=== PATIENT | female | born 1985 | race Caucasian/White ===

== ENCOUNTER 2022-01-24 17:52 | Emergency (ER) | payer OTHER, SELFPAY ==
--- NOTE | ~2022-01-24 | US_ITS ---
EXAMINATION: US RETROPERITONEAL LIMITED (RENAL ONLY) CLINICAL INFORMATION: Lower pelvic pain. Hematuria. Question stone.. COMPARISON: None TECHNIQUE: Sonographic evaluation of the kidneys. FINDINGS: RIGHT KIDNEY: 10.1 x 5.7 x 4.3 cm (SAG x AP x TRV). The kidney is normal in size, contour, and echogenicity. Renal cortical thickness is normal. No calculi or focal parenchymal lesions. No hydronephrosis. LEFT KIDNEY: 11.8 x 4.9 x 5.5 cm (SAG x AP x TRV). The kidney is normal in size, contour, and echogenicity. Renal cortical thickness is normal. No calculi or focal parenchymal lesions. No hydronephrosis. US/US renal BI IMPRESSION: Normal appearance of both kidneys..
--- NOTE | ~2022-01-24 | US_ITS ---
EXAMINATION: US OBSTETRICAL ULTRASOUND CLINICAL INFORMATION: Lower abdominal cramping COMPARISON: None. LMP: 12/07/2021. Gestational age by maternal dates is 7 weeks 0 days. Estimated date of delivery by maternal dates is 09/13/2022. TECHNIQUE: Transabdominal sonographic imaging of the pelvis. Doppler evaluation with spectral analysis performed. FINDINGS: There is a single intrauterine gestational sac with visible yolk sac, embryo/fetus, and cardiac activity. There is no significant subchorionic hemorrhage or hematoma. HR: 117 beats per minute. CRL (crown rump length): 1.52 cm (8 weeks 0 days +/- 4 days). VISHNU (estimated date of delivery): 09/06/2022 +/- 4 days. MATERNAL ADNEXA: The right maternal ovary measures 3.4 x 1.6 x 2.3 cm. Normal arterial and venous spectral waveforms. The left maternal ovary measures 3.8 x 2.3 x 3.1 cm. Normal arterial and venous spectral waveforms. Probable corpus luteal cyst. There is no significant maternal adnexal mass. No maternal pelvic ascites. US/US OB <= 14 weeks fetus IMPRESSION: 1. Single intrauterine gestation with ultrasound gestational age of 8 weeks 0 days +/- 4 days. 2. Estimated date of delivery is 09/06/2022 +/- 4 days. 3. No maternal adnexal mass or pelvic ascites.
[2022-01-24 19:04] VITALS: BP 112/61; PULSE 77; RESP 18; TEMP 37.2; O2SAT 98; BMI 31.8
[2022-01-24 19:16] LABS: MANUAL DIFF FLAG NO
[2022-01-24 19:18] LABS: Basophils Absolute Auto 0.1 X10*3/uL (0.0-0.2); Basophils Percent Auto 0.4 % (0-2); Eosinophils Absolute Auto 0.1 X10*3/uL (0.0-0.4); Eosinophils Percent Auto 0.4 % (0-4); Hematocrit 41.7 % (37.0-47.0); Hemoglobin 14.3 g/dl (12.0-16.0); Imm Gran Abs Auto 0.04 X10*3/uL (0.00-0.03); Imm Gran Pct Auto 0.3 % (0.0-0.4); Lymphocytes Absolute Auto 1.4 X10*3/uL (1.2-4.9); Lymphocytes Percent Auto 10.6 % (20-40); Mean Corpuscular HGB Conc 34.3 g/dl (31.0-35.0); Mean Corpuscular Hemoglobin 30.2 pg (27.0-33.0); Mean Corpuscular Volume 88.2 fL (80.0-98.0); Mean Platelet Volume 9.3 fL (9.4-12.3); Monocytes Absolute Auto 0.6 X10*3/uL (0.1-1.2); Monocytes Percent Auto 4.4 % (2-11); Neutrophils Absolute Auto 11.3 x10*3/uL (2.0-8.3); Neutrophils Percent Auto 83.9 % (45-73); Platelet Count 251 X10*3/uL (160-400); Red Blood Count 4.73 X10*6/uL (4.20-5.50); Red Cell Distribution Width 12.5 % (11.0-16.0); White Blood Count 13.4 X10*3/uL (4.8-10.8)
[2022-01-24 19:38] LABS: Alanine Aminotransferase 10 U/L (0-31); Albumin Level 4.8 g/dL (3.5-5.0); Alkaline Phosphatase 94 U/L (39-117); Aspartate Amino Transferase 13 U/L (5-31); Bilirubin Direct 0.5 mg/dL (0.0-0.5); Bilirubin Total 1.2 mg/dL (0.0-1.0); Lipase 12 U/L (8-78); Total Protein 7.5 g/dL (6.5-8.0)
[2022-01-24 19:39] LABS: Alanine Aminotransferase 10 U/L (0-31); Albumin Level 4.8 g/dL (3.5-5.0); Alkaline Phosphatase 88 U/L (39-117); Anion Gap 17 (12-20); Aspartate Amino Transferase 14 U/L (5-31); Bilirubin Total 1.2 mg/dL (0.0-1.0); Blood Urea Nitrogen 12 mg/dL (9-16); Calcium 9.7 mg/dL (8.4-10.2); Carbon Dioxide 22 mmol/L (22-29); Chloride 105 mmol/L (96-108); Creatinine Clr Calc Pharmacy 105.3; Estimated Glomerular Filt Rate > 60; Glucose Random 93 mg/dL (60-115); Potassium 4.2 mmol/L (3.3-5.1); Sodium 140 mmol/L (135-145); Total Protein 7.5 g/dL (6.5-8.0)
[2022-01-24 21:12] VITALS: BP 117/64; PULSE 79; RESP 16; TEMP 37.3; O2SAT 100
[2022-01-24 21:20] LABS: Appearance Urine CLEAR; Color Urine YELLOW; Glucose Urine UA Negative (NEG); Leukocyte Esterase Urine Negative (Negative); Nitrite Urine Negative (NEG); Specific Gravity - Urine >= 1.030 (1.005-1.025); Urine Blood Moderate (2+) (NEG); Urine Ketones >=80 MG/DL (NEG); Urine Protein 30 (1+) MG/DL (NEG-TRACE)
[2022-01-24 21:23] LABS: UPreg QC Valid YES; Urine Pregnancy POSITIVE (NEGATIVE)
[2022-01-24 21:26] LABS: Mucus Urine 2+ /LPF; Squamous Epithelial Cell Urine 1+ /LPF
[2022-01-24 21:27] LABS: WBC Urine 0-2 /HPF (0-4)
[2022-01-24 21:28] LABS: Amorphous Sediment Urine TRACE /LPF
--- NOTE | 2022-01-25 00:04 | ED_ITS ---
HPI - General Adult General Chief complaint: Nausea/Vomiting/Diarrhea Stated complaint: Vomiting 6 Wks Time Seen by Provider: 01/24/22 21:39 Source: patient Mode of arrival: ambulatory Limitations: no limitations History of Present Illness HPI narrative: 36 yold female who is 6 weeks presents to the ED for nausea, vomititting and inability to keep anything down since yesterday. Patient states slight bilateral lower abdominal cramping. Patient states no upper abdominal pain or vaginal bleeding. Patient denies any vaginal bleeding. Related Data Previous Rx's Medication Instructions Recorded metoclopramide HCl 10 mg tablet 10 mg PO Q4-6H PRN nausea and 01/25/22 (Reglan) vomiting 5 days #20 tabs pyridoxine (vitamin B6) 25 mg 25 mg PO TID PRN nausea and 01/25/22 tablet vomiting 5 days #15 tabs Allergies Allergy/AdvReac Type Severity Reaction Status Date / Time No Known Allergies Allergy Verified 01/24/22 19:02 Review of Systems Review of Systems: nausea, vomitting Yes all other systems are reviewed and are negative PMFSH Social History Social History Advance Directives: No Physical Exam ED Vital Signs: Vital Signs - 24 hr 01/24/22 19:04 01/24/22 21:12 01/25/22 00:20 Temperature 98.9 F 99.1 F Pulse Rate 77 79 81 Respiratory Rate 18 16 15 Blood Pressure 112/61 117/64 Pulse Oximetry 98 100 100 Oxygen Delivery Method Room Air Room Air Room Air BMI result Body Mass Index 31.8 Const General: cooperative, healthy appearing, comfortable, no acute distress, well developed, alert, awake and Physically active Orientation/consciousness: oriented to time and patient oriented x3 HENMT Head: Yes normal to inspection, Yes No palpable skull fracture present, Yes normocephalic, Yes atraumatic and No abrasion Eyes General: appearance normal, both eyes and all related structures Neck Neck: Yes normal visual inspection, Yes full ROM, Yes no lymphadenopathy, Yes no meningeal signs, Yes trachea midline, Yes supple, No anterior neck swelling and No tender Chest Chest palpation & inspection: normal inspection of the chest and normal palpation of entire chest wall Resp Effort & Inspection: normal respiratory effort and able to speak in complete sentences Auscultation: clear to auscultation bilaterally Cardio Jugular venous distension: no JVD Heart sounds: S1 normal heart sound present and S2 normal heart sound present GI Inspection: Yes normal to inspection and No abdominal wall ecchymosis Palpation (GI): Soft to palpation, not firm, nontender, no guarding and not rigid General: No CVA tenderness and Yes no CVA tenderness Back/Spine/Pelvis Back: no CVA tenderness, No CVA tenderness and No back tenderness Skin General skin exam: no rashes or lesions noted and elasticity normal Neuro General: oriented to time, patient oriented x3, gait normal, no meningeal signs and CN's II-XI intact bilaterally Cranial nerves: Yes CN's II-XII intact bilaterally Extrem General: Yes normal to inspection, Yes full ROM, Yes capillary refill normal, Yes normal exam except as noted, Yes no pedal edema, Yes no calf tenderness and Yes normal gait Psych Appearance: grossly normal, well kempt and not disheveled Course Course Course Narrative: History physical exam indicates hyperemesis but due to patient stating lower abdominal cramping without any tenderness was sent for ultrasound to make sure there is no ectopic . Urine has dysuria was sent for ultrasound of kidney summation is no kidney stones. Reevaluation(s) Reevaluation #1: Pelvic exam negative for any vaginal bleeding. Cervical os is closed. Negative CMT. Patient will be discharged with B6 and Reglan ( recommended by Dr. Uribe). Labs are normal at baseline. Renal ultrasound negative for kidney stones. ultrasound shows IUP with heart rate. Patient passed P.O. challenge Time: 01:39 Medical Decision Making [facility] Narrative Medical decision making narrative: Hyperemesis gravidarum Lab Data Result diagrams: 01/24/22 19:10 01/24/22 19:10 Labs: Lab Results 01/24/22 01/24/22 01/24/22 Range/Units 19:09 19:10 19:10 WBC 13.4 H (4.8-10.8) X10*3/uL RBC 4.73 (4.20-5.50) X10*6/uL Hgb 14.3 (12.0-16.0) g/dl Hct 41.7 (37.0-47.0) % MCV 88.2 (80.0-98.0) fL MCH 30.2 (27.0-33.0) pg MCHC 34.3 (31.0-35.0) g/dl RDW 12.5 (11.0-16.0) % Plt Count 251 (160-400) X10*3/uL MPV 9.3 L (9.4-12.3) fL Immature Gran % (Auto) 0.3 (0.0-0.4) % Neut % (Auto) 83.9 H (45-73) % Lymph % (Auto) 10.6 L (20-40) % [place] % (Auto) 4.4 (2-11) % Eos % (Auto) 0.4 (0-4) % Baso % (Auto) 0.4 (0-2) % Lymph # (Auto) 1.4 (1.2-4.9) X10*3/uL [place] # (Auto) 0.6 (0.1-1.2) X10*3/uL Eos # (Auto) 0.1 (0.0-0.4) X10*3/uL Baso # (Auto) 0.1 (0.0-0.2) X10*3/uL Abs Immat Gran (auto) 0.04 H (0.00-0.03) X10*3/uL Absolute Neuts (auto) 11.3 H (2.0-8.3) x10*3/uL Absolute Nucleated RBC 0.000 (0.0-0.012) X10*3/uL Nucleated RBC % (auto) 0.0 (0.0-0.2) /100WBC Sodium 140 (135-145) mmol/L Potassium 4.2 (3.3-5.1) mmol/L Chloride 105 (96-108) mmol/L Carbon Dioxide 22 (22-29) mmol/L Anion Gap 17 (12-20) BUN 12 (9-16) mg/dL Creatinine 0.74 (0.5-1.4) mg/dL Estim Creat Clear Calc 105.3 Estimated GFR > 60 Random Glucose 93 (60-115) mg/dL Calcium 9.7 (8.4-10.2) mg/dL Total Bilirubin 1.2 H 1.2 H (0.0-1.0) mg/dL Direct Bilirubin 0.5 (0.0-0.5) mg/dL AST 13 14 (5-31) U/L ALT 10 10 (0-31) U/L Alkaline Phosphatase 94 88 (39-117) U/L Total Protein 7.5 7.5 (6.5-8.0) g/dL Albumin 4.8 4.8 (3.5-5.0) g/dL Lipase 12 (8-78) U/L Beta HCG, Quant 79434 mIU/mL Urine Color Urine Appearance Urine pH (5.0-8.0) Ur Specific [place] (1.005-1.025) Urine Protein (NEG-TRACE) MG/DL Urine Glucose (UA) (NEG) MG/DL Urine Ketones (NEG) MG/DL Urine Blood (NEG) Urine Nitrite (NEG) Ur Leukocyte Esterase (Negative) Urine RBC (0) /HPF Urine WBC (0-4) /HPF Ur Squamous Epith Cells /LPF Amorphous Sediment /LPF Urine Bacteria /LPF Urine Mucus /LPF Urine Test (NEGATIVE) 01/24/22 01/24/22 Range/Units 21:14 21:14 WBC (4.8-10.8) X10*3/uL RBC (4.20-5.50) X10*6/uL Hgb (12.0-16.0) g/dl Hct (37.0-47.0) % MCV (80.0-98.0) fL MCH (27.0-33.0) pg MCHC (31.0-35.0) g/dl RDW (11.0-16.0) % Plt Count (160-400) X10*3/uL MPV (9.4-12.3) fL Immature Gran % (Auto) (0.0-0.4) % Neut % (Auto) (45-73) % Lymph % (Auto) (20-40) % [place] % (Auto) (2-11) % Eos % (Auto) (0-4) % Baso % (Auto) (0-2) % Lymph # (Auto) (1.2-4.9) X10*3/uL [place] # (Auto) (0.1-1.2) X10*3/uL Eos # (Auto) (0.0-0.4) X10*3/uL Baso # (Auto) (0.0-0.2) X10*3/uL Abs Immat Gran (auto) (0.00-0.03) X10*3/uL Absolute Neuts (auto) (2.0-8.3) x10*3/uL Absolute Nucleated RBC (0.0-0.012) X10*3/uL Nucleated RBC % (auto) (0.0-0.2) /100WBC Sodium (135-145) mmol/L Potassium (3.3-5.1) mmol/L Chloride (96-108) mmol/L Carbon Dioxide (22-29) mmol/L Anion Gap (12-20) BUN (9-16) mg/dL Creatinine (0.5-1.4) mg/dL Estim Creat Clear Calc Estimated GFR Random Glucose (60-115) mg/dL Calcium (8.4-10.2) mg/dL Total Bilirubin (0.0-1.0) mg/dL Direct Bilirubin (0.0-0.5) mg/dL AST (5-31) U/L ALT (0-31) U/L Alkaline Phosphatase (39-117) U/L Total Protein (6.5-8.0) g/dL Albumin (3.5-5.0) g/dL Lipase (8-78) U/L Beta HCG, Quant mIU/mL Urine Color YELLOW Urine Appearance CLEAR Urine pH 6.0 (5.0-8.0) Ur Specific [place] >= 1.030 H (1.005-1.025) Urine Protein 30 (1+) H (NEG-TRACE) MG/DL Urine Glucose (UA) Negative (NEG) MG/DL Urine Ketones >=80 (NEG) MG/DL Urine Blood Moderate (2+) H (NEG) Urine Nitrite Negative (NEG) Ur Leukocyte Esterase Negative (Negative) Urine RBC 5-9 H (0) /HPF Urine WBC 0-2 (0-4) /HPF Ur Squamous Epith Cells 1+ /LPF Amorphous Sediment TRACE /LPF Urine Bacteria NONE /LPF Urine Mucus 2+ /LPF Urine Test POSITIVE H (NEGATIVE) Discharge Plan Discharge Clinical Impression: Hyperemesis gravidarum Patient Disposition: Home, Self-Care Instructions: Hyperemesis Gravidarum (ED) Additional Instructions: Your labs came back at baseline. Urinary showed some dehydration that is why you are given fluid. Recommend oral hydration. You will be given copy of your labs and ultrasound results to follow-up with your OBGYN at [facility]. Return to the ED immediately for worsening abdominal pain, nausea, vomiting, vaginal bleeding, vaginal discharge, flank pain, fever, chills, or inability to have solids/liquids, or any other concerning symptoms. Prescriptions: New metoclopramide HCl [Reglan] 10 mg tablet 10 mg PO Q4-6H PRN (Reason: nausea and vomiting) 5 Days Qty: 20 0RF pyridoxine (vitamin B6) 25 mg tablet 25 mg PO TID PRN (Reason: nausea and vomiting) 5 Days Qty: 15 0RF Stand Alone Forms: Work/School Release Print Language: Azeri
[2022-01-25] MEDS: Metoclopramide HCl 10 MG/2 ML VIAL IVPUSH (00:19)
[2022-01-25 00:20] VITALS: PULSE 81; RESP 15; O2SAT 100
[2022-01-25] MEDS: 0.9 % Sodium Chloride 1,000 ML 999 ML IV (00:20)
--- NOTE | 2022-01-25 00:53 | PC.NURSE ---
pt ambulatory over to ultrasound
--- NOTE | 2022-01-25 00:58 | PC.NURSE ---
pt off the floor to US.
== END 2022-01-25 02:01 | disposition home or self-care (01) ==
PROVIDERS: Emergency Provider Internal Medicine
DX: O21.0 Mild hyperemesis gravidarum (principal); Z3A.01 Less than 8 weeks gestation of pregnancy; Z79.899 Other long term (current) drug therapy
CPT/HCPCS: 36415; 76775; 76801; 80053; 80076; 81001; 81025; 82248; 83690; 84702; 85025; 96374; 99284; J2765

== ENCOUNTER → 2022-02-02 09:20 | Outpatient (BNVA) | payer OTHER, SELFPAY | PROVIDERS: Visit Provider Advanced Practice Midwife | DX: O21.9 Vomiting of pregnancy, unspecified (principal); Z32.01 Encounter for pregnancy test, result positive; Z3A.08 8 weeks gestation of pregnancy | CPT/HCPCS: 99202 ==

== ENCOUNTER 2023-05-27 17:51 | Emergency (ER) | payer OTHER, SELFPAY ==
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
[2023-05-27 17:58] VITALS: BP 122/80; PULSE 92; O2SAT 98
[2023-05-27 18:00] VITALS: BP 139/65; PULSE 73; RESP 16
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
[2023-05-27 18:06] VITALS: BP 139/65; PULSE 73; RESP 16; O2SAT 97; BMI 31.9
[2023-05-27] MEDS: Ibuprofen 600 MG TABLET PO (18:26)
== END 2023-05-27 19:12 | disposition home or self-care (01) ==
PROVIDERS: Emergency Provider Emergency Medicine
DX: Z04.1 Encounter for examination and observation following transport accident (principal); M54.50 Low back pain, unspecified; M54.6 Pain in thoracic spine
CPT/HCPCS: 72070; 72100; 99283; 99284

== ENCOUNTER 2024-12-19 21:24 | Emergency (ER) | payer MEDICAID, SELFPAY ==
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
[2024-12-19 21:39] VITALS: BP 121/63; PULSE 101; RESP 20; TEMP 36.6; O2SAT 100; BMI 30.9
[2024-12-19 22:00] LABS: MANUAL DIFF FLAG NO
[2024-12-19 22:02] LABS: Hematocrit 39.4 % (37.0-47.0); Hemoglobin 13.8 g/dl (12.0-16.0); Imm Gran Abs Auto 0.05 X10*3/uL (0.00-0.03); Imm Gran Pct Auto 0.4 % (0.0-0.4); Lymphocytes Absolute Auto 1.6 X10*3/uL (1.2-4.9); Mean Corpuscular HGB Conc 35.0 g/dl (31.0-35.0); Mean Corpuscular Hemoglobin 30.7 pg (27.0-33.0); Mean Corpuscular Volume 87.6 fL (80.0-98.0); NRBC Abs Auto 0.000 X10*3/uL (0.0-0.012); NRBC Pct Auto 0.0 /100WBC (0.0-0.2); Platelet Count 236 X10*3/uL (160-400); Red Blood Count 4.50 X10*6/uL (4.20-5.50); White Blood Count 11.7 X10*3/uL (4.8-10.8)
[2024-12-19 22:17] LABS: Alanine Aminotransferase 19 U/L (0-31); Albumin Level 4.7 g/dL (3.5-5.0); Alkaline Phosphatase 90 U/L (39-117); Anion Gap 11 (12-20); Aspartate Amino Transferase 21 U/L (5-31); Blood Urea Nitrogen 11 mg/dL (9-16); Calcium 9.2 mg/dL (8.4-10.2); Carbon Dioxide 27 mmol/L (22-29); Chloride 106 mmol/L (96-108); Creatinine Clr Calc Pharmacy 85.9; Estimated Glomerular Filt Rate > 60; Potassium 4.0 mmol/L (3.3-5.1); Sodium 140 mmol/L (135-145); Total Protein 7.2 g/dL (6.5-8.0)
[2024-12-20 00:02] VITALS: BP 110/71; PULSE 80; RESP 14; TEMP 36.9; O2SAT 96
--- NOTE | 2024-12-20 00:26 | ED.GENADULT ---
HPI - General Adult General Chief complaint: General Medical Stated complaint: laceration back of head/syncope Time Seen by Provider: 12/20/24 00:22 Source: patient Limitations: no limitations History of Present Illness ED Provider: Kathe Chand PA-C HPI narrative: 39-year-old female presents with scalp laceration. Patient states she was cleaning in her kitchen, she felt as if she was going to pass out, she fell backwards hitting her head on a counter. No blood thinners, there was no loss consciousness,. Tetanus up-to-date. The patient denies headache, dizziness, nausea vomiting. She is having pain at the site. Related Data Previous Rx's ?Medication ?Instructions ?Recorded metoclopramide HCl 10 mg tablet 10 mg PO Q4-6H PRN nausea and 02/02/22 (Reglan) vomiting #60 tabs vitamin with calcium 1 tab PO DAILY #90 tabs 02/02/22 no.72-iron 27 mg-folic acid 1 mg tablet ( Vitamins Plus Low Iron) pyridoxine (vitamin B6) 25 mg 25 mg PO TID PRN nausea and 02/02/22 tablet vomiting #90 tabs cyclobenzaprine 5 mg tablet 5 mg PO TID PRN muscle spasm #20 05/27/23 tabs Allergies Allergy/AdvReac Type Severity Reaction Status Date / Time No Known Allergies Allergy Verified 12/19/24 21:43 Review of Systems Review of Systems: Yes all other systems are reviewed and are negative Constitutional: Constitutional: Denies fatigue, Denies fever(s) and Denies headache(s) ENT: Denies dizziness, Denies headache(s) and Denies neck pain Cardiovascular: Cardiovascular: Denies chest pain and Denies dyspnea Respiratory: Respiratory: Denies dyspnea Musculoskeletal: Musculoskeletal: Denies back pain and Denies neck pain Neurologic: Denies dizziness and Denies headache(s) Endocrine: Endocrine: Denies fatigue [facility] Past Medical History Attestation statement: The following information was validated with the patient. Social History Social History (Updated 02/02/22 @ 09:28 by Natalia Smith MA) Alcohol intake: never Patient Tobacco Use Status: Never used Tobacco Smoked in Last 30 Days: No Use of substances other than those prescribed or required for medical reasons: No Do you have a plan to hurt others: No Plan Patient : No Physical Exam ED Vital Signs: Vital Signs - 24 hr 12/19/24 21:39 12/20/24 00:02 Temperature 97.9 F 98.5 F Pulse Rate 101 H 80 Respiratory Rate 20 14 Blood Pressure 121/63 110/71 Pulse Oximetry 100 96 Oxygen Delivery Method Room Air Room Air BMI result Body Mass Index 30.9 Const Other: Alert circular laceration deep to subcu tissue not bleeding, measures approximately 4 cm in total length Orientation/consciousness: patient oriented x3 Resp Effort & Inspection: normal respiratory effort Cardio Other: Normal peripheral perfusion Skin Other: Warm dry no rash Neuro General: patient oriented x3, gait normal, no focal motor deficits and CN's II-XI intact bilaterally Psych Other: Cooperative Procedures Laceration Laceration 1: Site: scalp Side (If applicable): left Size (cm): 4 Description: irregular Depth: simple, single layer Local Anesthetic: lidocaine 1% and with epi Amount of anesthesia used (mL): 10 Pre-repair: irrigated extensively Technique: other (Eight jose) Medical Decision Making Medical Decision Making MDM Narrative: 39-year-old female presents with scalp laceration. Patient states she was cleaning in her kitchen, she felt as if she was going to pass out, she fell backwards hitting her head on a counter. No blood thinners, there was no loss consciousness,. Tetanus up-to-date. The patient denies headache, dizziness, nausea vomiting. She is having pain at the site. No chronic issues Her history: Per patient I have considered the following differential diagnoses: Laceration, contusion, abrasion Plan: Patient has sustained a laceration, simple repair with jose is all that is required. Screening labs were obtained from triage. I have independently reviewed the following tests: Labs: Slight leukocytosis, not anemic, no electrolyte abnormality noted Lab Data 12/19/24 21:57 12/19/24 21:57 Labs: Lab Results 12/19/24 Range/Units 21:57 WBC 11.7 H (4.8-10.8) X10*3/uL RBC 4.50 (4.20-5.50) X10*6/uL Hgb 13.8 (12.0-16.0) g/dl Hct 39.4 (37.0-47.0) % MCV 87.6 (80.0-98.0) fL MCH 30.7 (27.0-33.0) pg MCHC 35.0 (31.0-35.0) g/dl RDW 12.3 (11.0-16.0) % Plt Count 236 (160-400) X10*3/uL MPV 8.9 L (9.4-12.3) fL Immature Gran % (Auto) 0.4 (0.0-0.4) % Neut % (Auto) 80.1 H (45-73) % Lymph % (Auto) 13.2 L (20-40) % [place] % (Auto) 4.6 (2-11) % Eos % (Auto) 1.2 (0-4) % Baso % (Auto) 0.5 (0-2) % Lymph # (Auto) 1.6 (1.2-4.9) X10*3/uL [place] # (Auto) 0.5 (0.1-1.2) X10*3/uL Eos # (Auto) 0.1 (0.0-0.4) X10*3/uL Baso # (Auto) 0.1 (0.0-0.2) X10*3/uL Abs Immat Gran (auto) 0.05 H (0.00-0.03) X10*3/uL Absolute Neuts (auto) 9.4 H (2.0-8.3) x10*3/uL Absolute Nucleated RBC 0.000 (0.0-0.012) X10*3/uL Nucleated RBC % (auto) 0.0 (0.0-0.2) /100WBC Sodium 140 (135-145) mmol/L Potassium 4.0 (3.3-5.1) mmol/L Chloride 106 (96-108) mmol/L Carbon Dioxide 27 (22-29) mmol/L Anion Gap 11 L (12-20) BUN 11 (9-16) mg/dL Creatinine 0.90 (0.5-1.4) mg/dL Estim Creat Clear Calc 85.9 Estimated GFR > 60 Random Glucose 140 H (60-115) mg/dL Calcium 9.2 (8.4-10.2) mg/dL Total Bilirubin 0.4 (0.0-1.0) mg/dL AST 21 (5-31) U/L ALT 19 (0-31) U/L Alkaline Phosphatase 90 (39-117) U/L Total Protein 7.2 (6.5-8.0) g/dL Albumin 4.7 (3.5-5.0) g/dL Discharge Plan Discharge Clinical Impression: Laceration of scalp Patient Disposition: Home, Self-Care Instructions: Laceration (ED) Additional Instructions: All of your screening labs were normal. Eight jose were used to repair the laceration. See home care instructions. You can shower normally. Do not submerge your head in a bathtub, pool or hot tub. Return in 1 week for staple removal. Watch for signs of infection which would include sensitivity, warmth, redness, swelling, pus draining from the site or fever. If you develop any of these symptoms seek medical attention. Prescriptions: No Action cyclobenzaprine 5 mg tablet 5 mg PO TID PRN (Reason: muscle spasm) Qty: 20 0RF metoclopramide HCl [Reglan] 10 mg tablet 10 mg PO Q4-6H PRN (Reason: nausea and vomiting) Qty: 60 0RF pyridoxine (vitamin B6) 25 mg tablet 25 mg PO TID PRN (Reason: nausea and vomiting) Qty: 90 1RF Vitamin Plus Low Iron 27 mg iron- 1 mg tablet 1 tab PO DAILY Qty: 90 4RF Print Language: Polish
[2024-12-20 01:41] VITALS: BP 110/71; PULSE 80; RESP 14; TEMP 36.9; O2SAT 96
== END 2024-12-20 01:43 | disposition home or self-care (01) ==
PROVIDERS: Emergency Provider Emergency Medicine
DX: R55 Syncope and collapse (principal); S01.01XA Laceration without foreign body of scalp, initial encounter; W18.39XA Other fall on same level, initial encounter; Y93.9 Activity, unspecified; Y92.030 Kitchen in apartment as the place of occurrence of the external cause; Y99.8 Other external cause status
CPT/HCPCS: 12002; 36415; 80053; 85025; 93005; 99284

== ENCOUNTER → 2024-12-19 21:47 | Outpatient (BNV) | payer SELFPAY | PROVIDERS: Emergency Provider Emergency Medicine; Visit Provider Internal Medicine Cardiovascular Disease | DX: R55 Syncope and collapse (principal) | CPT/HCPCS: 93010 ==

== ENCOUNTER 2024-12-27 17:02 | Emergency (ER) | payer MEDICAID, SELFPAY ==
[2024-12-27 17:07] VITALS: BP 109/54; PULSE 77; RESP 18; TEMP 36.3; O2SAT 97; BMI 31.9
--- NOTE | 2024-12-27 17:20 | ED_ITS ---
HPI - General Adult General Chief complaint: General Medical Stated complaint: remove stitches Time Seen by Provider: 12/27/24 17:19 Source: patient Mode of arrival: ambulatory Limitations: no limitations History of Present Illness ED Provider: Dario Padilla HPI narrative: 39 yold female presents to the ED for quan removal. States they were inserted on 12/20/24. Patient denies any headache, nusaea, vomitting, fever, chills, or pus discharge. Related Data Previous Rx's ?Medication ?Instructions ?Recorded metoclopramide HCl 10 mg tablet 10 mg PO Q4-6H PRN margarita sea and 02/02/22 (Reglan) vomiting #60 tabs vitamin with calcium 1 tab PO DAILY #90 tabs 02/02/22 no.72-iron 27 mg-folic acid 1 mg tablet ( Vitamins Plus Low Iron) pyridoxine (vitamin B6) 25 mg 25 mg PO TID PRN nausea and 02/02/22 tablet vomiting #90 tabs cyclobenzaprine 5 mg tablet 5 mg PO TID PRN muscle spa sm #20 05/27/23 tabs Allergies Allergy/AdvReac Type Severity Reaction Status Date / Time No Known Allergies Allergy Verified 12/27/24 17:09 Review of Systems Review of Systems: staple removal Yes all other systems are reviewed and are negative [facility] Social History Social History (Updated 02/02/22 @ 09:28 by Natalia Smith MA) Alcohol intake: never Patient Tobacco Use Status: Never used Tobacco Advance Directives: No Advance Directives Information Provided: No Do you have a plan to hurt others: No Plan Physical Exam ED Vital Signs: Vital Signs - 24 hr 12/27/24 17:07 Temperature 97.4 F Pulse Rate 77 Respiratory Rate 18 Blood Pressure 109/54 L Pulse Oximetry 97 Oxygen Delivery Method Room Air BMI result Body Mass Index 31.9 Const General: cooperative, healthy appearing, comfortable, no acute distress, well developed, alert, awake and Physically active Orientation/consciousness: patient oriented x3 HENMT Other: positive for 8 quan. wound negative for pus discharge, foul odor, or redness Head: Yes normal to inspection, Yes No palpable skull fracture present, Yes normocephalic, Yes atraumatic and No abrasion Eyes General: appearance normal, both eyes and all related structures Neck Neck: Yes normal visual inspection, Yes full ROM, Yes no lymphadenopathy, Yes no meningeal signs, Yes trachea midline, Yes supple and No anterior neck swelling Chest Chest palpation & inspection: normal inspection of the chest and normal palpation of entire chest wall Resp Effort & Inspection: normal respiratory effort and able to speak in complete sentences Cardio Jugular venous distension: no JVD Heart sounds: S1 normal heart sound present and S2 normal heart sound present GI Inspection: Yes normal to inspection Palpation (GI): Soft to palpation, Firmness to palpation present (GI), nontend er, no guarding and not rigid General: Yes no CVA tenderness Back/Spine/Pelvis Back: no CVA tenderness and No back tenderness Neuro General: patient oriented x3, gait normal, tone normal, moves all extremities, Normal light touch and pain sensation and no meningeal signs Extrem General: Yes normal to inspection, Yes full ROM and Yes capillary refill normal Psych Appearance: grossly normal, well kempt and not disheveled Medical Decision Making Medical Decision Making MDM Narrative: 39-year-old female presents to ED for staple removal. Patient had quan placed on the 20 of December. Patient denies any complications. Physical exam shows wound healing appropriately. Quan removed about 8-9. No signs of infection. Patient explained worrisome signs and informed to return to the ED immediately. Differential Diagnosis Differential Diagnoses: The differential diagnosis associated with the presentation includes (Staple removal) Admission/Observation Consideration of admission/observation: Escalation of care including admission/observation considered Independent Historian Clinical information obtained from an independent historian. History obtained from or confirmed by: Other (Patient) Discharge Plan Discharge Clinical Impression: Removal of quan Patient Disposition: Home, Self-Care Instructions: Staple Care (ED), Stitches Removal (ED) Additional Instructions: Your quan were removed. Return to the ED immediately for any headache, dizziness, nausea, vomiting, pus discharge, foul odor, fever, chills or any other concerning symptoms. Recommend follow up with primary care provider Prescriptions: No Action cyclobenzaprine 5 mg tablet 5 mg PO TID PRN (Reason: muscle spasm) Qty: 20 0RF metoclopramide HCl [Reglan] 10 mg tablet 10 mg PO Q4-6H PRN (Reason: nausea and vomiting) Qty: 60 0RF pyridoxine (vitamin B6) 25 mg tablet 25 mg PO TID PRN (Reason: nausea and vomiting) Qty: 90 1RF Vitamin Plus Low Iron 27 mg iron- 1 mg tablet 1 tab PO DAILY Qty: 90 4RF Interventions: ED Discharge Assessment Last Done: 12/27/24 17:35 Discharge Date/Time: 12/27/24 17:38 Print Language: Romansh
[2024-12-27 17:35] VITALS: BP 109/54; PULSE 77; RESP 18; TEMP 36.3; O2SAT 97
--- OUTSIDE RECORDS SUMMARY | 2024-12-27 17:41 | XMS_ITS | Clinical Summary ---
Author Organization [facility] Address [address] [place] [address] Care Team Providers Care Potato Bucker Name Role Phone Major Harvey MD Primary Care Provider [phone] Medical History Medical History Date Comments Historical Medical DX 09/20/2011 DX:NO ACTI VE MEDICAL PROBLEMS PTSD (post-traumatic stress disorder) 02/06/2015 DX:PTSD (post-traumatic stress disorder) Family History Medical History Relation Name Comments Breast cancer Neg Hx Colon cancer Neg Hx Coronary artery disease Neg Hx Diabetes Neg Hx Heart attack Neg Hx Ovarian cancer Neg Hx Stroke Neg Hx Relation Name Status Comments Brother Alive Daughter Alive Father Alive age 50; healthy Maternal Grandfather Maternal Grandmother Alive Mother hx of drug abus e, IV drug use, hep C/AIDS Paternal Grandfather Alive Paternal Grandmother Sister Alive anemia Son 1 Alive Son 2 Alive Son 3 Alive Social History Tobacco Use Types Packs/Day Years Used Date Smoking Tobacco: Former Cigarettes Q uit: 02/12/2008 Smokeless Tobacco: Never Alcohol Use Standard Drinks/Week Comments Yes 0 (1 standard drink = 0.6 oz pur e alcohol) Comments Unknown Sex and Gender Information Value Date Recorded Sex Assigned at Not on file Legal Sex Choose not to disclose 3 5:43 PM EDT Gender Identity Not on file Sexual Orientation Not on file Obstetrics History Plan of Treatment Health Maintenance Due Date Last Done Comments Breast Cancer Screening 1984 Hepatitis B Vaccines (1 of 3 - 19+ 3-dose series) 10/10/2003 Cervical Cancer Screening: P ap Smear 2005 Cholesterol Screening (Lipid Panel) 05/10/2022 Depression Screening 05/10/2022 HIV Screening 05/10/2022 Social Influencers of Health Screening 05/10/2022 COVID-19 Vaccine (2023-2 5 season) 2024 Influenza Vaccine (#1) 2025 2, 03/31/2017, 06/24/2014 DTaP,Tdap,and Td Vaccines (3 - Td or Tdap) 07/12/2032 07/12/2022, 09/12/2014 Hepatitis C Screening Completed 02/09/2022 HIB Vaccines Aged Out No longer eligi ble based on patient's age to complete this topic HPV Vaccines Aged Out No longer eligi ble based on patient's age to complete this topic Hepatitis A Vaccines Aged Out No long er eligible based on patient's age to complete this topic IPV Vaccines Aged Out No longer eligi ble based on patient's age to complete this topic MMR Vaccines Aged Out No longer eligi ble based on patient's age to complete this topic Meningococcal ACWY Vaccine Aged Out N o longer eligible based on patient's age to complete this topic Meningococcal B Vaccine Aged Out No l onger eligible based on patient's age to complete this topic Pneumococcal Vaccine: Pediatrics (0 to 5 Years) and At-Risk Patients (6 to 49 Years) Aged Out No longer eligible b ased on patient's age to complete this topic RSV Immunization Patients Under 20 months Aged Out No longer eligible b ased on patient's age to complete this topic Varicella Vaccines Aged Out No longer eligible based on patient's age to complete this topic Care Teams Potato Bucker Relationship Specialty Start Date End Date Major Harvey MD [address] [place] [id number] PCP - General Internal Medicine 02/05/14
== END 2024-12-27 17:38 | disposition home or self-care (01) ==
LOC: HO.ED 17:39
PROVIDERS: Emergency Provider Emergency Medicine
DX: Z48.02 Encounter for removal of sutures (principal); S01.91XD Laceration without foreign body of unspecified part of head, subsequent encounter; W45.8XXD Other foreign body or object entering through skin, subsequent encounter
CPT/HCPCS: 99282